=== PATIENT | male | born 1955 | race Caucasian/White ===

== ENCOUNTER 2024-05-25 13:28 | Day surgery (SDC) | payer MEDICARE, SELFPAY ==
[2024-05-22 07:40] VITALS: BMI 29.1
--- NOTE | 2024-05-22 12:49 | P.CONAN_ITS ---
Documented by User: Letty Judge NP 05/22/24 12:49 HPI - Anesthesia Eval Consult details Narrative: 68yo M for Upper Endoscopy [facility] Past Medical History Medical History (Updated 05/22/24 @ 07:34 by Diane Tinsley RN) Anxiety Depression Hyperlipidemia HTN (hypertension) Surgical History Surgical History (Updated 05/22/24 @ 07:34 by Diane Tinsley RN) H/O colonoscopy Hx of left inguinal hernia repair History of umbilical hernia repair Social History Social History Are you a primary personal care aide to a significant other at home: No Patient Tobacco Use Status: Never used Tobacco Use of substances other than those prescribed or required for medical reasons: No Are you DNR?: No Advance Directives: No Advance Directives Information Provided: Yes Recently lost weight without trying: No Nutrition Risks: No Nutritional Risk Meds Allergies Allergy/AdvReac Type Severity Reaction Status Date / Time No Known Allergies Allergy Verified 05/25/24 13:49 Home Medications ?Medication ?Instructions ?Recorded ?Confirmed ?Last Taken ?Type lisinopril 10 1 tab PO DAILY 05/22/24 05/25/24 Unknown History mg-hydrochlorothiazide 12.5 mg tablet meloxicam 7.5 mg tablet 7.5 mg PO DAILY 05/22/24 05/25/24 Unknown History omeprazole 40 mg capsule,delayed 40 mg PO DAILY 05/22/24 05/25/24 Unknown History release rosuvastatin 10 mg tablet 10 mg PO DAILY 05/22/24 05/25/24 Unknown History sertraline 50 mg tablet 50 mg PO DAILY 05/22/24 05/25/24 Unknown History Exam Height,Weight and Vital Signs: Height 5 ft 10 in Weight 92.079 kg Assessment and Plan Assessment Anesthesia Assessment: Chart Reviewed Documented by User: Blake Tovar MD 05/25/24 14:37 [facility] Past Medical History Medical History (Updated 05/22/24 @ 07:34 by Diane Tinsley RN) Anxiety Depression Hyperlipidemia HTN (hypertension) Family History Family history of problems with anesthesia: No Surgical History Surgical History (Updated 05/22/24 @ 07:34 by Diane Tinsley RN) H/O colonoscopy Hx of left inguinal hernia repair History of umbilical hernia repair History of Problems with Anesthesia: No Social History Social History Are you a primary personal care aide to a significant other at home: No Patient Tobacco Use Status: Never used Tobacco Use of substances other than those prescribed or required for medical reasons: No Are you DNR?: No Advance Directives: No Advance Directives Information Provided: Yes Recently lost weight without trying: No Nutrition Risks: No Nutritional Risk Meds Allergies Allergy/AdvReac Type Severity Reaction Status Date / Time No Known Allergies Allergy Verified 05/25/24 13:49 Home Medications ?Medication ?Instructions ?Recorded ?Confirmed ?Last Taken ?Type lisinopril 10 1 tab PO DAILY 05/22/24 05/25/24 Unknown History mg-hydrochlorothiazide 12.5 mg tablet meloxicam 7.5 mg tablet 7.5 mg PO DAILY 05/22/24 05/25/24 Unknown History omeprazole 40 mg capsule,delayed 40 mg PO DAILY 05/22/24 05/25/24 Unknown History release rosuvastatin 10 mg tablet 10 mg PO DAILY 05/22/24 05/25/24 Unknown History sertraline 50 mg tablet 50 mg PO DAILY 05/22/24 05/25/24 Unknown History Exam Airway Mallampati Class: II TM Dist: <=3cm Neck ROM: Full Loose/Missing/Broken Teeth: No Heart: ok Lungs: ok Assessment and Plan Assessment Anesthesia Assessment: Anesthesia Plan Discussed Final Anesthetic Review Family History of Problems with Anesthesia: No History of Problems with Anesthesia: No NPO: Yes ASA Class: II Final Preanesthetic Review: No Changes in Pt Med Stat, Meds/Allgs Chart Reviewed, Consent Obtained/Reviewed and Anes Risks/Benef Reviewed Patient Risk: Intermediate Procedure Risk: Intermediate Anesthetic Plan Anesthetic Plan: Agree w/ Assess. and Plan and TIVA Disposition: Standard PACU
[2024-05-25 13:50] VITALS: BMI 28.7
[2024-05-25 14:00] VITALS: BP 166/77; PULSE 69; RESP 16; TEMP 36.7; O2SAT 99
[2024-05-25] MEDS: Lactated Ringers 1,000 ML 100 ML IVCONT (14:29)
[2024-05-25 15:16] VITALS: BP 99/52; PULSE 77; RESP 18; TEMP 36.4; O2SAT 98
--- NOTE | 2024-05-25 15:17 | PM.OP ---
Brief Operative Note Date of Service: 05/25/24 Pre-op diagnosis: Abdominal discomfort, Nausea Post-op diagnosis: other (Hiatal hernia, GERD, R/O H.pylori) Procedure: EGD with biopsies Surgeon: Elver Birmingham MD Anesthesia: MAC Was an Economic Specialist used for this Procedure?: No Estimated blood loss (mL): 2.0 Pathology: other (A. Gastric antrum B. EG Junction at 35cm) Condition: stable Disposition: PACU
[2024-05-25 15:31] VITALS: BP 134/81; PULSE 62; RESP 18; TEMP 36.6; O2SAT 98
--- NOTE | 2024-05-26 01:19 | OP_ITS ---
DATE OF SERVICE: 05/25/2024 SURGEON: Elver Birmingham MD PREOPERATIVE DIAGNOSIS: POSTOPERATIVE DIAGNOSIS: PROCEDURE PERFORMED: Esophagogastroduodenoscopy with biopsies. ESTIMATED BLOOD LOSS: COMPLICATIONS: ANESTHESIA: Monitored anesthesia care. ASSISTANTS: SPECIMENS: PREOPERATIVE DIAGNOSES: Abdominal discomfort, nausea, and anorexia. POSTOPERATIVE DIAGNOSES: Abdominal discomfort, nausea, and anorexia, hiatal hernia, gastroesophageal reflux, rule out Durham 's esophagus, rule out H pylori. INDICATION: The patient presents for evaluation of abdominal discomfort, nausea, and anorexia. Full consent was obtained from him for this, including risks of bleeding and perforation. DESCRIPTION OF PROCEDURE: The patient was placed in the left lateral decubitus position. The Olympus video gastroscope was passed in the posterior oropharynx and upper esophagus under direct vision. The scope was passed slowly into the distal esophagus. The gastroesophageal junction appeared at 35 cm. There was some slight irregularity consistent with reflux and small less than 1 cm areas of Durham's appearing mucosa. There was no esophagitis nor any lesions. The scope entered to the stomach. There was a gulpl-eu-ksicmwlp-sized hiatal hernia with normal-appearing mucosa. The scope was advanced to the pylorus and the duodenum was cannulated to the descending portion. The duodenum including the bulb appeared normal without mass or ulceration. The scope was withdrawn back in the stomach. The gastric antrum had some minimal areas of erythema and edema, but no erosions or ulceration. There was good peristalsis. Biopsies were obtained from the gastric antrum. The scope was retroflexed, visualizing the proximal stomach carefully, which appeared normal, without any sign of mass or ulceration. The scope was straightened and withdrawn back to the esophagus. Biopsies were obtained at the EG junction at 35 cm. Proximal to that the esophageal mucosa appeared normal. The scope was withdrawn from the patient. He tolerated the procedure well and was returned to recovery area in stable condition. IMPRESSION: 1. Hiatal hernia, gastroesophageal reflux, rule out Durham's esophagus. 2. Rule out H pylori. PLAN: The results of the biopsies will be checked. At this point, he does report that he has been feeling better since having stopped his meloxicam, using omeprazole, and having not used aspirin in about a week. I did advise him that at this point I would try to minimize the use of any NSAIDs going forward, as well as to possibly stopping the aspirin long-term if that is okay with his primary care physician. He does not appear to have any medical history or risk factors that requires the use of aspirin from a definitive standpoint. I did advise that he could continue to use omeprazole either daily or just p.r.n. for any reflux type symptoms. Overall, I do suspect when he was having a lot of his upper GI complaints while on meloxicam and aspirin, he was probably having some gastritis or even peptic ulcer disease that subsequently resolved by starting omeprazole and being off the NSAID and aspirin. Of note, he did have a run of SVT during the procedure, lasting about 5 or 10 minutes. There was no hemodynamic compromise and this resolved spontaneously. The anesthesiologist did not feel this needs any particular workup, but I did advise him and his daughter that he should speak with his primary care physician about that such that he knows that for his record and to be sure the primary care physician does not think any further evaluation of that is required. They have been given written instructions in this regard. My office will be in touch with him to set up appointment for him in the spring after he returns from [place]. He was advised to call sooner as needed. MD BRENDA Corrigan/CHRIS / [phone] ISABELLA
== END 2024-05-25 15:54 | disposition home or self-care (01) ==
PROVIDERS: PCP Internal Medicine; Visit Provider Internal Medicine
PROC: 0DJ08ZZ Inspection of Upper Intestinal Tract, Via Natural or Artificial Opening Endoscopic (ICD-10-PCS; CPT 43235; principal; 2024-05-25 14:30)
DX: R10.84 Generalized abdominal pain (principal); R11.0 Nausea; R63.0 Anorexia; Z68.29 Body mass index [BMI] 29.0-29.9, adult; K31.9 Disease of stomach and duodenum, unspecified; I47.19 Other supraventricular tachycardia; K22.70 Barrett's esophagus without dysplasia; K21.9 Gastro-esophageal reflux disease without esophagitis; K44.9 Diaphragmatic hernia without obstruction or gangrene; I10 Essential (primary) hypertension; E78.5 Hyperlipidemia, unspecified; K58.9 Irritable bowel syndrome, unspecified; F41.8 Other specified anxiety disorders; Z79.899 Other long term (current) drug therapy
CPT/HCPCS: 43239; 88305; 88313; 88342; J0153; J2704

== ENCOUNTER 2024-09-18 16:00 | Outpatient (REF) | payer MEDICARE, SELFPAY ==
--- OUTSIDE RECORDS SUMMARY | 2024-09-18 16:02 | XMS_ITS ---
Author Organization [facility] Address [address] [place] [phone] Care Team Providers Care Glove Cleaner Name Role Phone Conrad RODRÍGUEZ, [facility] Primary Care Provider Elver Murray Unavailable [phone] REASON FOR VISIT naysea,reflux,diarrhea Encounters Encounter Location Date Provider Diagnosis [facility] [address] [place] [phone] 09/15/2024 Elevr Birmingham PLAN OF TREATMENT Next Appt Details Provider Name:Elver Birmingham , 10/05/2024 02:30:00 PM, [address] [place] [address] , [place], [place], [phone],
--- OUTSIDE RECORDS SUMMARY | 2024-09-18 16:03 | XMS_ITS | Patient Health Record ---
Author Organization [facility] Address [address] [place] [address] Care Team Providers Care Oyster Preparer Name Role Phone Conrad RODRÍGUEZ, Fransico Primary Care Provider Elver Murray Unavailable [phone] ALLERGIES No Known Allergies RESULTS Component Value Reference Range Notes Pathology Reviewed date:08/04/2024 08:11:17 AM Interpretation: Performing Lab:[facility], [address] [place] [id number] Notes/Report: REASON FOR REFERRAL No Information MEDICATIONS Medication SIG (Take, Route, Frequency, Duration) Notes Start Date End Date Status Sertraline HCl 50 MG TAKE 1 TABLET BY [facility] EVERY DAY Oral for 90 Active Lisinopril-hydroCHLOROthiaz roberto carlos 10-12.5 MG TAKE 1 TABLET BY MOUTH EVERY DAY FOR 90 DAYS Oral for 90 Active Rosuvastatin Calcium 10 MG TAKE 1 TABLET BY MOUTH EVERY DAY Oral for 90 Active Omeprazole 40 MG Oral for 90 PRN A ctive IMMUNIZATIONS Vaccine Route Administration Date Status Comme nts Influenza Unknown 05/13/2024 Refused Influenza Unknown 09/18/2024 Refused SOCIAL HISTORY Tobacco Use: Social History Observation Description Date Details (start date - stop date) Never Smoker NA - NA Sex Assigned At : Social History Observation Description Sex Assigned At Unknown Tobacco Use/Smoking Question Answer Notes Patient is a nonsmoker Alcohol Screen Question Answer Notes Did you have a drink contain ing alcohol in the past year? Yes How often did you have a dri nk containing alcohol in the past year? 2 to 4 times a month (2 points) How many drinks did you have on a typical day when you were drinking in the past year? 1 or 2 drinks (0 point) How often did you have 6 or more drinks on one occasion in the past year? Never (0 point) Points 2 Interpretation Negative PROBLEMS Problem Type ICD Code Onset Dates Problem Status W/U Status Risk SNOMED Code Notes Problem Gastro-esophageal reflux disease without esophagitis (K21.9) Active confirmed Gastro-esophage a l reflux disease without esophagitis (627419371) Problem Gastroparesis (K31.84) Active confirmed Gastroparesis (788094071) Problem Nausea (R11.0) Active confirmed Nausea (637831696) Problem Anorexia (R63.0) Active confirmed Anore derek (95602195) Problem IBS (irritable bowel syndrome) (K58.9) Active confirmed Irritable bowel syndrome (84605271) Problem Abdominal pain, periumbilical (R10.33) Active confirmed Periumbilical pain (823405511) VITAL SIGNS Temperature 98.2 degrees Fahrenheit 09/18/2024 Blood pressure diastolic 00 mm Hg 09/18/2024 Height 5 ft 10 in in 09/18/2024 Blood pressure systolic 000 mm Hg 09/18/2024 Weight 190 lb 2 oz lbs 09/18/2024 BMI 27.28 kg/m2 09/18/2024 Encounters Encounter Location Date Provider Diagnosis [facility] Outpatient [address] [place] [id number] 05/25/2024 Elver Birmingham Gastro-esophageal reflux disease without esophagitis K21.9 ; Hiatal hernia K44.9 ; Gastroparesis K31.84 ; Vomiting R11.10 and Anorexia R63.0 [facility] [address] [place] [phone] 02/11/2024 Elver Birmingham [facility] [address] [place] [phone] 09/15/2024 Elver Birmingham [facility] [address] [place] [phone] 05/13/2024 Elver Birmingham [facility] [address] [place] [phone] 05/13/2024 Elver Birmingham Nausea R11.0 ; Anorexia R63.0 ; IBS (irritable bowel syndrome) K58.9 and Abdominal pain, periumbilical R10.33 [facility] [address] [place] [phone] 05/13/2024 Elver Birmingham [facility] [address] [place] [address] 09/18/2024 Elver Birmingham Nausea R11.0 ; IBS (irritable bowel syndrome) K58.9 ; Anorexia R63.0 ; Gastro-esophageal reflux disease without esophagitis K21.9 and Encounter for screening for malignant neoplasm of colon Z12.11 [facility] [address] [place] [address] 05/21/2024 Elver Birmingham [facility] [address] [place] [address] 05/25/2024 Elver Birmingham ASSESSMENTS Encounter Date Diagnosis Assessment Notes Treatment Notes Treatment Clinical Notes 05/25/2024 Gastro-esophageal reflux disease without esophagitis (ICD-10 - K21.9) 05/25/2024 Hiatal hernia (ICD-10 - K44.9) 05/13/2024 Nausea (ICD-10 - R11.0) Stop aspirin and Meloxicam for 1 week before the procedures Ask your PCP about stopping aspirin altogether The aspirin and Meloxicam together can cause GI upset with nausea, anorexia, discomfort, etc 05/13/2024 Anorexia (ICD-10 - R63.0) 09/18/2024 Nausea (ICD-10 - R11.0) 05/25/2024 Gastroparesis (ICD-10 - K31.84) 05/13/2024 IBS (irritable bowel syndrome) (ICD-10 - K58.9) 09/18/2024 IBS (irritable bowel syndrome) (ICD-10 - K58.9) 05/25/2024 Vomiting (ICD-10 - R11.10) 05/13/2024 Abdominal pain, periumbilical (ICD-10 - R10.33) 09/18/2024 Anorexia (ICD-10 - R63.0) 05/25/2024 Anorexia (ICD-10 - R63.0) 09/18/2024 Gastro-esophageal reflux disease without esophagitis (ICD-10 - K21.9) Continue the daily omeprazole 09/18/2024 Encounter for screening for malignant neoplasm of colon (ICD-10 - Z12.11) 05/13/2024 Other Repeat colonosc opy in 2025 PLAN OF TREATMENT Pending Test Test Name Order Date CELIAC PANEL #10 09/18/2024 Future Test Test Name Order Date UPPER GI ENDOSCOPY 05/13/2024 COLONOSCOPY 09/18/2024 Next Appt Details Provider Name:Elver Birmingham , 10/05/2024 02:30:00 PM, [address] [place] [address] , [place], [place], [phone], Insurance Providers Payer Name Payer Address Payer Phone Subscriber Number Group Number Insured Name Patient Relationship to Insured Coverage Start Date Coverage End Date [facility] [address] [place] [address] [phone] [id number] GUILLERMINA MAGDALENO Self - patient is the insured MEDICAL (GENERAL) HISTORY Medical History History ICD Code Denies HI,DM,CVA,Lung disease,renal dise ase HTN Hyperlipidemia Depression/Anxiety IBS Neg colonoscopy with me in , neg. colonoscopy [place] [address] Moses, neg. Cologuard test in 2023 Surgical History Surgery Date(Month/Year) hernia--umbilical 2022 Inguinal hernia on left
--- OUTSIDE RECORDS SUMMARY | 2024-09-18 16:03 | XMS_ITS | Patient Health Record ---
Author Organization [facility] Address [address] [place], [place] [phone] Care Team Providers Care Manager Mail Name Role Phone Francisco Kerr Unavailable [phone] Allergies No Known Allergies Reason For Referral No Information Social History Tobacco Use: Social History Observation Description Date Details (start date - stop date) Never Smoker NA - NA Sex Assigned At : Social History Observation Description Sex Assigned At Male Tobacco Control (Standard) Question Answer Notes Tobacco use: Nonsmoker Vital Signs Heart Rate 78 /min 06/20/2024 Temperature 97.1 degrees Fahrenheit 06/20/2024 Respiratory Rate 17 /min 06/20/2024 Height-cm 177.8 cm 06/20/2024 Oximetry 98 % 06/20/2024 Blood pressure diastolic 80 mm Hg 06/20/2024 Weight-kg 90.72 kg 06/20/2024 Height 70 in 06/20/2024 Blood pressure systolic 120 mm Hg 06/20/2024 Weight 200 lbs 06/20/2024 BMI 28.69 kg/m2 06/20/2024 Encounters Encounter Location Date Provider Diagnosis [facility] [address] [place], [place] [phone] 06/20/2024 Francisco Kerr Impacted cerumen of left ear H61.22 Assessments Encounter Date Diagnosis (ICD Code) Assessment Notes Treatment Notes Treatment Clinical Notes Section Notes 06/20/2024 Impacted cerumen of left ear (ICD-10 - H61.22) Nature/patho/etiol ogy and treatment options discussed. Discussed maintenance of OTC Debrox/ear wax removers-softener per the directions on the box. Using ear drops once a week. Having a regular ear cleaning about every 6 months. Not using cotton swabs in the ear. Keep your ear clean and dry for the next few days. NSAID's for any discomfort. Patient verbalized understanding of instructions and agrees with plans Plan Of Treatment No Information Insurance Providers Payer Name Payer Address Payer Phone Subscriber Number Group Number Insured Name Patient Relationship to Insured Coverage Start Date Coverage End Date [facility] [address] [place] [address] [id number] GUILLERMINA MAGDALENO Self - patient is the insured Medical (General) History Medical History History ICD Code hypertension Surgical History Surgery Date(Month/Year) hernia 2022
--- OUTSIDE RECORDS SUMMARY | 2024-09-18 16:03 | XMS_ITS ---
Author Organization [facility] Address [address] [place], [place] [id number] Care Team Providers Care Access Spec Name Role Phone Francisco Kerr Unavailable [phone] Allergies No Known Allergies REASON FOR VISIT UCN--LEFT EAR CLOGGED Social History Tobacco Use: Social History Observation Description Date Details (start date - stop date) Never Smoker NA - NA Sex Assigned At : Social History Observation Description Sex Assigned At Male Tobacco Control (Standard) Question Answer Notes Tobacco use: Nonsmoker Vital Signs Temperature 97.1 degrees Fahrenheit 06/20/20 24 Blood pressure systolic 120 mm Hg 06/20/20 24 Blood pressure diastolic 80 mm Hg 024 Heart Rate 78 /min 06/20/2024 Respiratory Rate 17 /min 06/20/2024 Height 70 in 06/20/2024 Weight 200 lbs 06/20/2024 BMI 28.69 kg/m2 06/20/2024 Oximetry 98 % 06/20/2024 Height-cm 177.8 cm 06/20/2024 Weight-kg 90.72 kg 06/20/2024 Encounters Encounter Location Date Provider Diagnosis [facility] [address] [place], [place] [id number] 06/20/2024 Francisco Cirilo Impacted cerumen of left ear H61.22 Assessments [...] and agrees with plans Plan Of Treatment Treatment Notes Assessment Notes Impacted cerumen of left ear Nature/patho/etiology and treatment options discussed. Discussed maintenance of OTC Debrox/ear wax removers-softener per the directions on the box. Using ear drops once a week. Having a regular ear cleaning about every 6 months. Not using cotton swabs in the ear. Keep your ear clean and dry for the next few days. NSAID's for any discomfort. Patient verbalized understanding of instructions and agrees with plans Next Appt Details Follow Up: prn, F/U with PCP , Reason: Progress Notes * SHARLA, GUILLERMINA RDOB:[birth year] (69 yo M)Acc No.[id number]:06/20/2024 Progress Notes Patient:?GUILLERMINA MAGDALENO Provider:?Francisco Kerr :1955???Age:69 Y???Sex:Male Nakul e:06/20/2024 Phone: Address:[address] [place] [address] Subjective: * Chief Complaints: * ???1. UCN--LEFT EAR CLOGGED. * HPI: ???Transition of Care:?Patient presented to the clinic with the chief complaint of left ear clogged with ear wax. Patient stated that he put Debrox in to try to remove it without any success. Would like it washed out. Patient is visiting from [place] accompanied by his . * Medical History:?Hypertensio n. * Surgical History:?hernia 202 3. * Hospitalization/Major Diagno stic Procedure:?Denies Past Hospitalization. * Family History:?No Family Hi story documented..? * Social History:?Tobacco Use:?Tobacco Control (Standard)?Tobacco use:?Nonsmoker.?Drug/Alcohol:?Do you drink alcohol?: No. * Medications:?None * Allergies:?N.K.D.A. Objective: * Vitals:?BP:120/80mm Hg, HR:7 8/min, RR:17/min, Temp:97.1F, Oxygen sat %:98%, Wt:200lbs, Wt-k.72 kg, Ht: 70 in, Ht-cm: 177.8 cm, BMI:28.69Index, Pain scale: Not Taken - No Medical Need, Body Surface Area: 2.11, LMP: Not Taken - No Medical Need. * Examination: ???General Examination: ?General appearance:?alert, pleasant, well-nourished and in no acute distress.?Head:?normocephalic, atraumatic.?Eyes:?both eyes, PAOLA.?Ears:?Right ear normal, auditory canal clear, tympanic membrane intact and clear, light reflex present.?Left ear auditory canal obscured with wax - post lavage, tympanic membrane intact, no discharge or erythema noted,?.?Nose:?nares patent, sinuses nontender bilaterally.?Oral cavity:?normal, with good dentition, palate normal, mucosa moist.?Throat:?clear, no erythema, no exudate, pharynx normal, uvula midline.?Neck / thyroid:?neck is supple, with full range of motion.?Lymph nodes:?no cervical lymphadenopathy.?Skin:?skin is warm and dry, with no rashes, and normal hair distribution.?Heart:?regular rate and rhythm without murmurs, gallops, clicks or rubs.?Lungs:?clear to auscultation bilaterally, with good air movement and no rales, rhonchi or wheezes.?Chest:?chest wall with normal shape and expansion.?Neurologic:?alert and oriented, gait normal.?Psych:?alert and oriented x 3, cognitive function intact, cooperative with exam, maintains good eye contact, with good judgement and insight.? Assessment: * Assessment: 1.?Impacted cerumen of left ear - H61.22 (Primary)??? Plan: * Treatment: * Procedures:?Consent signed. Leftear lavaged with H2O2 and warm water. Copious wax removed from ear. TM intact. Patient tolerated procedure well. Accomplished by Yeni BARR. ? * Procedure Codes:?79330 REMOV E IMPACTED EAR WAX UNI * Follow Up:?prn, F/U with PCP * Billing Information: * Visit Code:? 28810 Office Visit, New Pt., Level 4. * Procedure Codes:? 72501 REMOVE IMPACTED EAR WAX UNI. * Sign off status: Completed true * Provider:Adalberto Kerr Date:?06/20/20 24 Generated for Essence rothman/Steven/Ernesto on:?09/18/2024 02:18 PM EST History and Physical Notes * HPI (History of Present Illness) Category Sub-Category Detail Notes Category Not es Transition of Care Patient p resented to the clinic with the chief complaint of left ear clogged with ear wax. Patient stated that he put Debrox in to try to remove it without any success. Would like it washed out. Patient is visiting from [place] accompanied by his Examination Category Sub-Category Detail Notes Category Not es General Examination General appearance: alert, p leasant, well-nourished and in no acute distress Head: normocephalic, atrau matic Eyes: both eyes, PAOLA Ears: Right ear normal, au ditory canal clear, tympanic membrane intact and clear, light reflex present. Left ear auditory canal obscured with wax - post lavage, tympanic membrane intact, no discharge or erythema noted, Nose: nares patent, sinuse s nontender bilaterally Throat: clear, no erythema, no exudate, pharynx normal, uvula midline Neck / thyroid: neck is supple, with full range of motion Heart: regular rate and rhy thm without murmurs, gallops, clicks or rubs Chest: chest wall with norm al shape and expansion Lungs: clear to auscultatio n bilaterally, with good air movement and no rales, rhonchi or wheezes Neurologic: alert and oriented, gait normal Skin: skin is warm and dry , with no rashes, and normal hair distribution Lymph nodes: no cervical lymphade nopathy Psych: alert and oriented x 3, cognitive function intact, cooperative with exam, maintains good eye contact, with good judgement and insight Oral cavity: normal, with good de ntition, palate normal, mucosa moist
--- OUTSIDE RECORDS SUMMARY | 2024-09-18 16:03 | XMS_ITS ---
Author Organization [facility] Address [address] [place] [id number] Care Team Providers Care Compliance Counsel Name Role Phone Conrad RODRÍGUEZ [facility] Primary Care Provider Elver Murray [phone] MEDICATIONS Medication SIG (Take, Route, Fr equency, Duration) Notes Start Date End Date Status Omeprazole 20 MG 1 capsule Orally Hina ry morning for 90 days 05/25/2024 Active Encounters Encounter Location Date Provider Diagnosis [facility] [address] [place] [phone] 05/25/2024 Elver Birmingham PLAN OF TREATMENT Medication Medication Name Sig Start Date Stop Date Notes Omeprazole 20 MG 1 capsule Orally Hina ry morning for 90 days 05/25/2024 Next Appt Details Provider Name:Elver Birmingham , 10/05/2024 02:30:00 PM, [address] [place] [address] , [place], [place], [phone],
[2024-09-21 10:14] LABS: Immunoglobulin A 339 mg/dL (70-320)
[2024-09-21 21:38] LABS: Gliadin Deamidated IgA Ab <1.0 U/mL; Gliadin Deamidated IgG Ab <1.0 U/mL; Transglutaminase Ab IgG <1.0 U/mL; Transglutaminase IgA <1.0 U/mL
[2024-09-22 23:39] LABS: Endomysial IgA Antibody Negative (Negative)
== END 2024-09-18 16:01 | disposition home or self-care (01) ==
LOC: HO.LAB 16:00
PROVIDERS: PCP Internal Medicine; Visit Provider Internal Medicine
DX: R11.0 Nausea (principal); K58.9 Irritable bowel syndrome, unspecified
CPT/HCPCS: 36415; 82784; 86231; 86258; 86364